=== PATIENT | female | born 1995 | race African-American/Black ===

== ENCOUNTER 2016-09-19 20:14 | Emergency (ER) | payer MEDICAID ==
[2016-09-19 20:17] VITALS: BP 136/70; PULSE 133; RESP 16; TEMP 98; O2SAT 100
--- NOTE | 2016-09-19 20:36 | PD ---
Physical Exam Date Seen by Provider: Sep 19, 2016 Time Seen by Provider: 20:35 Narrative 21 yo female 6 months here for evaluation of "feeling tired". Has had this since the past few days. Thinks she might be dehydrated. No abdominal pain. No vaginal discharge. No issues with the . Vitals are stable in triage. Awaiting Bed placement. Data Data Last Documented VS Vital Signs Date Time Temp Pulse Resp B/P Pulse Ox O2 Delivery O2 Flow Rate FiO2 09/19/16 20:17 98.0 133 16 136/70 100 Room Air [facility] Medical Record Reviewed: Yes Supervised Visit with JEANETTE: No Scripts No Active Prescriptions or Reported Meds Luca Real Sep 19, 2016 20:36
--- NOTE | 2016-09-19 21:39 | PD ---
HPI Chief Complaint Fatigue Date Seen: Sep 19, 2016 Travel History International Travel<30 Days: No Contact w/Intl Traveler<30Days: No Known Affected Area: No History of Present Illness HPI Patient 21-year-old black female at [address] Germain and Christina who presents with complaint of I'm tired. She has no pain bleeding or leakage of fluid, heart rate tracing is reactive and she's not gunnar Para: 0 : 2 History Social History Alcohol Use: No Tobacco Use: No Substance Abuse: No Allergies-Medications (Allergen,Severity, Reaction): Coded Allergies: Blueberry (Verified Allergy, Severe, HIVES, 09/19/16) Home Meds No Active Prescriptions or Reported Meds Review of Systems General / Constitutional: No: Fever, Weight Gain, Chills, Other Eyes: No: Diploplia, Blurred Vision, Visual changes, Pain, Photophobia HENT: No: Headaches, Vertigo, Lightheadedness Cardiovascular: No: Irregular Rhythm, Chest Pain or Discomfort, Palpitations, Tachycardia, Syncope, Varicosities, Edema, Cyanosis Respiratory: No: Cough, Short of Breath, Other Gastrointestinal: No: Nausea, Vomiting, Diarrhea Genitourinary: No: Decreased Urinary Output, Oliguria Musculoskeletal: No: Limited ROM, Weakness, Cramping, Edema, Pain Skin: No Rash, No Itching, No Dryness, No Lumps, No Change in Pigmentation, No Change in Nails, No Alopecia, No Lesions Neurologic: No: Weakness, Dizziness, Syncope, Focal Abnormalities, Coordination Problem, Headache, Slurred Speech, Seizures Psychiatric: No: Depression, Suicidal Ideations, Homicidal Ideation Endocrine: No: Heat Intolerance, Cold Intolerance, Polydipsia, Polyuria, Other Physical Exam Vital Signs Date Time Temp Pulse Resp B/P Pulse Ox O2 Delivery O2 Flow Rate FiO2 09/19/16 20:17 98.0 133 16 136/70 100 Room Air Narrative GENERAL: Well-nourished, well-developed patient. SKIN: Warm and dry. HEAD: Normocephalic and atraumatic. EYES: No scleral icterus. No injection or drainage. ENT: No nasal drainage noted. Mucous membranes pink. Airway patent. NECK: Supple, trachea midline. No JVD. CARDIOVASCULAR: Regular rate and rhythm without murmurs, gallops, or rubs. RESPIRATORY: Breath sounds equal bilaterally. No accessory muscle use. BREASTS: Bilateral exam showed no masses , no retractions, no nipple discharge. ABDOMEN/GI: Abdomen soft, non-tender, bowel sounds present, no rebound, no guarding Gravid to [-27] weeks size Fundal Height: [27-] GENITOURINARY: Membranes: [intact ] Uterine Contractions: [-none] FHT's: Category: [1-] Baseline: [-133] Reactive: [yes-] Variability: [mod-] Decels: [none-] EXTREMITIES: No cyanosis or edema. BACK: Nontender without obvious deformity. No CVA tenderness. NEUROLOGICAL: Awake and alert. Motor and sensory grossly within normal limits. Five out of 5 muscle strength in all muscle groups. Normal speech. MDM Interpretation(s) 21-year-old black female at 27 weeks who presents with a complaint of just being tired and one in the baby checked out, she denies bleeding or leakage of fluid contractions. heart rate tracing is reactive baby is active she states is moving well, no contractions seen. Plan Plan is to discharge patient home to bedrest if she is tired that she should rest Diagnosis Diagnosis: Primary Impression: 27 weeks gestation of Additional Impression: Fatigue Disposition: 01 DISCHARGE HOME Condition: Stable Scripts No Active Prescriptions or Reported Meds Lokesh Garcia II, MD Sep 19, 2016 21:39
== END 2016-09-19 21:47 | disposition home or self-care (01) ==
LOC: HOBED 20:14
DX: O26.892 Other specified pregnancy related conditions, second trimester (principal); R53.83 Other fatigue; Z3A.27 27 weeks gestation of pregnancy
CPT/HCPCS: 99281

== ENCOUNTER 2016-12-05 08:33 | Inpatient (IN) | payer MEDICAID ==
[2016-12-05] VITALS (79 sets, daily range): BP systolic 64–133; BP diastolic 30–80; PULSE 66–111; RESP 14–22; TEMP 97.9–98.6
[~2016-12-05] VITALS: Ht 154.9 cm; Wt 59.0 kg
[2016-12-05] MEDS ORDERED: LACTATED RINGER'S 1000 ML INJ 1,000 ML IV SCH (09:04)
[2016-12-05] MEDS ORDERED: LACTATED RINGER'S 1000 ML INJ 1,000 ML IV PRN (09:04)
--- NOTE | 2016-12-05 09:04 | PD ---
HPI Chief Complaint Rupture membranes and contractions Date Seen: Dec 05, 2016 Time Seen: 09:01 Travel History International Travel<30 Days: No Contact w/Intl Traveler<30Days: No Known Affected Area: No History of Present Illness HPI 21-year-old who is at 39 weeks 0 days comes in complaining of rupture of membranes this morning at 6 AM with clear fluid. That having consistent contractions since that time. Patient denies vaginal bleeding and has been having normal movement. Denies any obstetrical complications she is group B strep positive. Weeks Gestation: 39 Para: 0 : 2 Miscarriage: 1 History Past Medical History Medical History: Denies Significant Hx Past Surgical History Surgical History: No Previous Surgery Family History Family History: Negative Social History Alcohol Use: No Tobacco Use: No Substance Abuse: Yes (marijuana) Allergies-Medications (Allergen,Severity, Reaction): Coded Allergies: blueberry (Unverified Allergy, Severe, HIVES, 10/24/16) Home Meds No Active Prescriptions or Reported Meds Review of Systems Except as stated in HPI: all other systems reviewed are Neg Physical Exam Narrative GENERAL: Well-nourished, well-developed patient. SKIN: Warm and dry. HEAD: Normocephalic and atraumatic. EYES: No scleral icterus. No injection or drainage. ENT: No nasal drainage noted. Mucous membranes pink. Airway patent. NECK: Supple, trachea midline. No JVD. CARDIOVASCULAR: Regular rate and rhythm without murmurs, gallops, or rubs. RESPIRATORY: Breath sounds equal bilaterally. No accessory muscle use. ABDOMEN/GI: Abdomen soft, non-tender, bowel sounds present, no rebound, no guarding Gravid to [38-] weeks size Fundal Height: [-] GENITOURINARY: External Genitalia: intact and normal in appearance BUS glands: [-Normal] Cervix: [-Mid position] Dilatation: [-2-3] Effacement: [80] Station: [-2-] Presentation: [Vertex-] Membranes: [ ruptured with clear fluid] Uterine Contractions: [-Every 5 minute] FHT's: Category: [1-] Baseline: [-140] Reactive: [Moderate-] Variability: [Moderate-] Decels: [-Absent] EXTREMITIES: No cyanosis or edema. BACK: Nontender without obvious deformity. No CVA tenderness. NEUROLOGICAL: Awake and alert. Motor and sensory grossly within normal limits. Five out of 5 muscle strength in all muscle groups. Normal speech. Data Data Vital Signs Reviewed: Yes Orders Orders Ob (2e) Additional Admit Info (12/05/16 08:58) Group B Strep: Positive MDM Medical Record Reviewed: Yes Plan 21-year-old at 39 weeks gestation, group B strep positive, in early labor with rupture membranes. Will admit to Dr. Germain for labor Diagnosis Diagnosis: Primary Impression: 39 weeks gestation of Additional Impressions: Rupture of membranes with clear amniotic fluid Irregular uterine contractions Group beta Strep positive Scripts No Active Prescriptions or Reported Meds Alicia Pina MD Dec 05, 2016 09:04
[2016-12-05] MEDS ORDERED: PENICILLIN G POTASSIUM INJ 5,000,000 UNITS in SODIUM CHLORIDE 0.9% INJ 100 ML IV ONE (09:15)
[2016-12-05] MEDS ORDERED: SODIUM CHLORID 0.9% 500 ML INJ 500 ML IV PRN (09:15)
[2016-12-05] MEDS ORDERED: OXYTOCIN 30 UNITS-500ML PREMIX 500 ML IV ONE (09:15)
[2016-12-05] MEDS ORDERED: LIDOCAINE HCL 1% 50 ML VIAL I-DERMAL PRN (09:15)
[2016-12-05] MEDS ORDERED: ONDANSETRON HCL 4 MG/2 ML VIAL IV PRN (09:15)
[2016-12-05] MEDS ORDERED: LIDOCAINE HCL 1% 50 ML VIAL INFIL PRN (09:15)
[2016-12-05] MEDS ORDERED: MINERAL OIL 10 ML VIAL TOPICAL PRN (09:15)
[2016-12-05] MEDS ORDERED: CITRIC ACID-SODIUM CITRATE LIQ 30 ML UDC PO SCH (09:15)
[2016-12-05 09:23] LABS: AUTOMATED NEUTROPHIL # 4.3 TH/MM3 (1.8-7.7); BASOPHIL % 0.2 % (0.0-2.0); EOSINOPHIL % 0.3 % (0.0-4.0); HEMATOCRIT 29.8 % (35.0-46.0); HEMO FLAGS DIFF FINAL; LYMPH % 22.6 % (9.0-44.0); LYMPHOCYTE # 1.4 TH/MM3 (1.0-4.8); MEAN CELL VOLUME 76.2 FL (80.0-100.0); MEAN CORPUSCULAR HGB CONC 31.5 % (32.0-36.0); MONO % 7.9 % (0.0-8.0); PLATELET COUNT 267 TH/MM3 (150-450); RED BLOOD COUNT 3.91 MIL/MM3 (4.00-5.30); RED CELL DISTRIBUTION WIDTH 15.1 % (11.6-17.2); WHITE BLOOD COUNT 6.3 TH/MM3 (4.0-11.0)
[2016-12-05] MEDS ORDERED: SODIUM CHLOR 0.9% 1000 ML INJ 1,000 ML IV PRN (09:24)
[2016-12-05 09:35] LABS: BLOOD, URINE NEG (NEG); COMMENT (UR) CULT NOT INDICATED; CULTURE IF INDICATED CULT NOT INDICATED; GLUCOSE,URINE NEG (NEG); KETONE, URINE NEG (NEG); MUCUS URINE FEW /lpf (OCC); NITRITE,URINE NEG (NEG); PH, URINE 7.5 (5.0-8.5); SQUAMOUS EPITHELIAL CELL URINE 1 /hpf (0-5); URINE COLOR YELLOW (YELLW/STRAW)
[2016-12-05] MEDS ORDERED: ePHEDrine/NS 25 MG/5 ML SYR ONE (09:40)
[2016-12-05] MEDS ORDERED: fentaNYL 2MCG-BUPIV 0.125% INJ 100 ML ONE (09:40)
[2016-12-05] MEDS ORDERED: OXYTOCIN 30 UNITS/NS 500ML PREMIX IV SCH (10:00)
[2016-12-05] MEDS ORDERED: PREN29TA PO (11:40)
[2016-12-05] MEDS ORDERED: OXYTOCIN 30 UNITS-500ML PREMIX 500 ML IV SCH ×2 (12:15→16:30)
[2016-12-05] MEDS ORDERED: PENICILLIN G POTASSIUM INJ 2,500,000 UNITS in SODIUM CHLORIDE 0.9% INJ 100 ML IV SCH (13:00)
[2016-12-05] MEDS ORDERED: DO NOT ADMINISTER ANTICOAGULANTS PRN (13:30)
[2016-12-05] MEDS ORDERED: fentaNYL 2MCG-BUPIV 0.125% 100 ML EPIDURAL SCH (13:30)
[2016-12-05] MEDS ORDERED: NO SYSTEM NARCOTICS PRN (13:30)
[2016-12-05] MEDS ORDERED: ePHEDrine/NS 25 MG/5 ML SYR IV PRN (13:30)
[2016-12-05] MEDS ORDERED: DIPHTH/TETANUS/ACEL PERTUSSIS (BOOSTER) 0.5 ML VIAL/PFS IM ONE (16:00)
[2016-12-05] MEDS ORDERED: MEASLES, MUMPS, RUBELLA VACCINE 0.5 ML VIAL SQ ONE (16:00)
--- NOTE | 2016-12-05 16:25 | PD.OB.DELI ---
Weeks gestation: 39 Gest age assessed date: Dec 05, 2016 Gest age assessed time: 16:23 Pt started active labor?: Yes Medical induction of labor?: No Artificial rupture of membrane: No Anesthesia: Epidural Episiotomy: None Vaginal Delivery: Normal Presentation: Occiput anterior Delayed cord clamping (45 sec): Yes : Male Delivery date: Dec 05, 2016 Delivery time: 16:07 One Minute : 9 Five Minute : 9 Weight: 3045g Placenta: Spontaneous delivery Laceration: No lacerations Estimated blood loss: 100ml Dorie Germain MD Dec 05, 2016 16:25
[2016-12-05] MEDS ORDERED: ZOLPIDEM TARTRATE 5 MG TAB PO PRN (16:30)
[2016-12-05] MEDS ORDERED: ACETAMINOPHEN 325 MG TAB PO PRN (16:30)
[2016-12-05] MEDS ORDERED: ALUMINUM/MAGNESIUM/SIMETH 30 ML CUP PO PRN (16:30)
[2016-12-05] MEDS ORDERED: DOCUSATE SODIUM 50 MG/SENNA 8.6 MG TAB PO PRN (16:30)
[2016-12-05] MEDS ORDERED: ONDANSETRON ODT 4 MG TAB PO PRN (16:30)
[2016-12-05] MEDS ORDERED: SODIUM CHLORIDE 0.9% FLUSH 10 ML FLUSH IV FLUSH PRN (16:30)
[2016-12-05] MEDS ORDERED: WITCH HAZEL 50%/GLYCERIN 12.5% 40 PAD JAR TOPICAL PRN (16:30)
[2016-12-05] MEDS ORDERED: BENZOCAINE 20% TOPICAL SPRAY 60 ML CAN TOPICAL PRN (16:30)
[2016-12-05] MEDS: IBUPROFEN 600 MG TAB PO PRN (17:55)
[2016-12-05] MEDS ORDERED: SODIUM CHLORIDE 0.9% FLUSH 10 ML FLUSH IV FLUSH SCH (21:00)
[2016-12-06] MEDS: IBUPROFEN 600 MG TAB PO PRN ×2 (08:32→21:24)
[2016-12-06 08:40] VITALS: BP 107/68; PULSE 72; RESP 18
[2016-12-06 09:52] VITALS: TEMP 98.4; O2SAT 98
[2016-12-06] MEDS ORDERED: INFLUENZA VIRUS VACCINE (QUADRIVALENT) 0.5 ML SYR IM ONE (10:00)
--- NOTE | 2016-12-06 11:26 | HHI.OB ---
Subjective Post Day: 1 Remarks PPD#1, stable using motrin for pain. Objective Objective Remarks GENERAL: Well-nourished, well-developed patient. CARDIOVASCULAR: Regular rate and rhythm without murmurs, gallops, or rubs. RESPIRATORY: Breath sounds equal bilaterally. No accessory muscle use. ABDOMEN/GI: Abdomen soft, non-tender. Fundus: Firm, non-tender at umbilicus. GENITOURINARY: Light to moderate bleeding. EXTREMITIES: No cyanosis or edema, non-tender, without signs of DVT. Medications and IVs Current Medications Medications (Trade) Dose Ordered Sig/Katie Route Start Time Stop Time Status Last Admin (NS Flush) 2 ml BID IV FLUSH 12/05/16 21:00 (NS Flush) 2 ml UNSCH PRN IV FLUSH 12/05/16 16:30 (Tylenol) 650 mg Q4H PRN PO 12/05/16 16:30 (Motrin) 600 mg Q6H PRN PO 12/05/16 16:30 12/06/16 08:32 (Americaine 20% Top Spr) 1 spray Q4H PRN TOPICAL 12/05/16 16:30 (Tucks Pads) 1 applic QID PRN TOPICAL 12/05/16 16:30 (Bettina-Colace) 2 tab Q12H PRN PO 12/05/16 16:30 (Ambien) 5 mg HS PRN PO 12/05/16 16:30 (Mag-Al Plus Susp Liq) 15 ml Q8H PRN PO 12/05/16 16:30 (Zofran Odt) 4 mg Q6H PRN PO 12/05/16 16:30 Assessment/Plan Assessment and Plan PPD#1, stable, plan discharge for tomorrow Discharge Planning Routine Attending Attestation seen by Dustin Christian MD Dec 06, 2016 11:26
[2016-12-06 20:00] VITALS: BP 106/77; PULSE 70; RESP 17; TEMP 98.8
--- NOTE | 2016-12-07 07:59 | HHI.OB ---
Subjective Post Day: 2 Remarks pt doing well, breast and bottlefeeding Objective Vitals/I&O vss afeb Objective Remarks GENERAL: Well-nourished, well-developed patient. CARDIOVASCULAR: Regular rate and rhythm without murmurs, gallops, or rubs. RESPIRATORY: Breath sounds equal bilaterally. No accessory muscle use. ABDOMEN/GI: Abdomen soft, non-tender. Fundus: Firm, non-tender at umbilicus. GENITOURINARY: Light to moderate bleeding. EXTREMITIES: No cyanosis or edema, non-tender, without signs of DVT. Medications and IVs Current Medications Medications (Trade) Dose Ordered Sig/Katie Route Start Time Stop Time Status Last Admin (NS Flush) 2 ml BID IV FLUSH 12/05/16 21:00 (NS Flush) 2 ml UNSCH PRN IV FLUSH 12/05/16 16:30 (Tylenol) 650 mg Q4H PRN PO 12/05/16 16:30 (Motrin) 600 mg Q6H PRN PO 12/05/16 16:30 12/06/16 21:24 (Americaine 20% Top Spr) 1 spray Q4H PRN TOPICAL 12/05/16 16:30 (Tucks Pads) 1 applic QID PRN TOPICAL 12/05/16 16:30 (Bettina-Colace) 2 tab Q12H PRN PO 12/05/16 16:30 (Ambien) 5 mg HS PRN PO 12/05/16 16:30 (Mag-Al Plus Susp Liq) 15 ml Q8H PRN PO 12/05/16 16:30 (Zofran Odt) 4 mg Q6H PRN PO 12/05/16 16:30 Assessment/Plan Assessment and Plan PPD#2, stable, plan discharge today Discharge Planning Routine Attending Attestation pt seen by Caridad Robles MD Dec 07, 2016 07:59
[2016-12-07 08:00] VITALS: BP 103/56; PULSE 67; RESP 18; TEMP 97.6
[2016-12-07] MEDS ORDERED: IBUP-232 PO (08:01)
--- NOTE | 2016-12-07 08:01 | HHI.DCPOC ---
Discharge Care Plan Your Health Problems Are: Pelvic pain Report Symptoms to Your Doctor -Temperature above 100.5 degrees -Redness, of incision or excessive or foul smelling drainage -Unusual pain or calf pain -Increased vaginal bleeding -Painful or difficulty urinating -Feelings of extreme sadness or anxiety after 2 weeks Goals to Promote Your Health * To prevent worsening of your condition and complications * To maintain your health at the optimal level Directions to Meet Your Goals Take your medications as prescribed Follow your dietary instruction Follow activity as directed Ensure plenty of rest for recovery Drink fluids for hydration Keep your appointments as scheduled Take your immunizations and boosters as scheduled If your symptoms worsen call your PCP, if no PCP go to Urgent Care Center or Emergency Room Smoking is Dangerous to Your Health. Avoid second hand smoke Call the 24-hour crisis hotline for domestic abuse at Caridad Guzman MD Dec 07, 2016 08:01
[2016-12-07] MEDS ORDERED: MULTIVIT/MIN/PREN/FOL AC/IRON PRENATAL TAB PO SCH (09:00)
[2016-12-07] MEDS: IBUPROFEN 600 MG TAB PO PRN (09:29)
== END 2016-12-07 15:07 | disposition home or self-care (01) | DRG 775 ==
LOC: HOBED 08:33 → H2EB 08:58 → H1EA 19:26
PROVIDERS: ADMIT Obstetrics & Gynecology; ATTEND Obstetrics & Gynecology
PROC: 10E0XZZ Delivery of Products of Conception, External Approach (ICD-10-PCS; principal; 2016-12-05)
PROC: 00HU33Z Insertion of Infusion Device into Spinal Canal, Percutaneous Approach (ICD-10-PCS; 2016-12-05)
PROC: 3E0R3CZ (ICD-10-PCS; 2016-12-05)
DX: O99.824 Streptococcus B carrier state complicating childbirth (principal); Z37.0 Single live birth; Z3A.39 39 weeks gestation of pregnancy
CPT/HCPCS: 59025; 81001; 85025; 86900; 86901; 90715; J2540; J2590; J3010; J7120

== ENCOUNTER 2017-04-14 11:39 | Emergency (ER) | payer MEDICAID ==
[~2017-04-14 11:39] MED LIST: IBUP-232 PO; PREN29TA PO
[2017-04-14 11:40] VITALS: BP 124/66; PULSE 123; RESP 14; TEMP 99.6; O2SAT 100
--- NOTE | 2017-04-14 11:51 | PD ---
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 Patient states she had not yet had her menstrual cycle but yesterday she began bleeding and she passed a large clot. She then passed a large piece of tissue that she is concerned about. She states after passing this the cramping has been not as severe. She denies any chest or tightness. No difficulty breathing. No sensations lightheadedness. Patient does not know she was but she does say that she had unprotected intercourse since she had her child. She has no other symptoms to report. PFSH Past Medical History Blood Disorders: No Anxiety: Yes Depression: No Cancer: No Cardiovascular Problems: No Diminished Hearing: No Endocrine: No Gastrointestinal Disorders: No Genitourinary: No Immune Disorder: No Implanted Vascular Access Dvce: No Musculoskeletal: No Neurologic: No Psychiatric: No Reproductive: Yes (PATIENT UNSURE IF EGGS ARE FERTILE.) Respiratory: No Immunizations Current: Yes : 0 Para: 0 Miscarriage: 0 : 0 Past Surgical History Other Surgery: No Social History Alcohol Use: No Tobacco Use: No Substance Use: Yes (MARIJUANA) Allergies-Medications (Allergen,Severity, Reaction): Coded Allergies: blueberry (Verified Allergy, Severe, HIVES, 04/14/17) Reported Meds & Prescriptions Reported Meds & Active Scripts Active Ibuprofen 600 Mg Tab 600 Mg PO Q6H PRN Reported Plus Iron 29-1 mg ( Vit-Iron Carbonyl) 29 Mg Iron-1 Mg Tab 1 Tab PO DAILY Review of Systems Except as stated in HPI: all other systems reviewed are Neg Physical Exam Narrative GENERAL: Well-nourished, well-developed female patient in no acute distress. SKIN: Focused skin assessment warm/dry. HEAD: Normocephalic. EYES: No scleral icterus. No injection or drainage. NECK: Supple, trachea midline. No JVD or lymphadenopathy. CARDIOVASCULAR: Regular rate and rhythm without murmurs, gallops, or rubs. RESPIRATORY: Breath sounds equal bilaterally. No accessory muscle use. GASTROINTESTINAL: Abdomen soft, non-tender, nondistended. No guarding. No rebound tenderness. MUSCULOSKELETAL: No cyanosis, or edema. BACK: Nontender without obvious deformity. No CVA tenderness. Data Data Last Documented VS Vital Signs Date Time Temp Pulse Resp B/P (MAP) Pulse Ox O2 Delivery O2 Flow Rate FiO2 04/14/17 14:50 04/14/17 14:00 92 17 99 Room Air 04/14/17 11:40 99.6 Orders Orders Ed Urine Pregnancytest Poc (04/14/17 11:51) Iv Access Insert/Monitor (04/14/17 12:08) Complete Blood Count With Diff (04/14/17 12:08) Basic Metabolic Panel (Bmp) (04/14/17 12:08) Beta Hcg (Quant/Titer) (04/14/17 12:08) Urinalysis - C+S If Indicated (04/14/17 12:08) Us Pelvis (Ques Pr/Ect)W Trans (04/14/17 ) Sodium Chlor 0.9% 1000 Ml Inj (Ns 1000 M (04/14/17 13:00) Ed Discharge Order (04/14/17 14:40) Labs Laboratory Tests Test 04/14/17 12:20 White Blood Count 4.9 TH/MM3 Red Blood Count 4.63 MIL/MM3 Hemoglobin 12.2 GM/DL Hematocrit 37.4 % Mean Corpuscular Volume 80.8 FL Mean Corpuscular Hemoglobin 26.4 PG Mean Corpuscular Hemoglobin Concent 32.7 % Red Cell Distribution Width 14.8 % Platelet Count 264 TH/MM3 Mean Platelet Volume 8.3 FL Neutrophils (%) (Auto) 45.1 % Lymphocytes (%) (Auto) 44.8 % Monocytes (%) (Auto) 8.6 % Eosinophils (%) (Auto) 0.9 % Basophils (%) (Auto) 0.6 % Neutrophils # (Auto) 2.2 TH/MM3 Lymphocytes # (Auto) 2.2 TH/MM3 Monocytes # (Auto) 0.4 TH/MM3 Eosinophils # (Auto) 0.0 TH/MM3 Basophils # (Auto) 0.0 TH/MM3 CBC Comment DIFF FINAL Differential Comment Urine Color YELLOW Urine Turbidity CLEAR Urine pH 6.0 Urine Specific [place] 1.012 Urine Protein NEG mg/dL Urine Glucose (UA) NEG mg/dL Urine Ketones NEG mg/dL Urine Occult Blood NEG Urine Nitrite NEG Urine Bilirubin NEG Urine Urobilinogen LESS THAN 2.0 MG/DL Urine Leukocyte Esterase NEG Urine RBC LESS THAN 1 /hpf Urine WBC 1 /hpf Urine Squamous Epithelial Cells <1 /hpf Urine Mucus FEW /lpf Microscopic Urinalysis Comment CULT NOT INDICATED Blood Urea Nitrogen 11 MG/DL Creatinine 0.72 MG/DL Random Glucose 81 MG/DL Calcium Level 9.2 MG/DL Sodium Level 140 MEQ/L Potassium Level 3.5 MEQ/L Chloride Level 108 MEQ/L Carbon Dioxide Level 25.1 MEQ/L Anion Gap 7 MEQ/L Estimat Glomerular Filtration Rate 123 ML/MIN Human Chorionic Gonadotropin, Quant 1676 MIU/ML MDM Medical Decision Making Medical Screen Exam Complete: Yes Emergency Medical Condition: Yes Medical Record Reviewed: Yes Differential Diagnosis Miscarriage versus menses versus dysmenorrhea versus dysfunctional uterine bleeding Narrative Course 22-year-old female presents to emergency department for evaluation. Patient appears without distress. Her vital signs are stable. She is tachycardic however she is very anxious about what is going on at this time. Laboratory Tests Test 04/14/17 12:20 White Blood Count 4.9 TH/MM3 Red Blood Count 4.63 MIL/MM3 Hemoglobin 12.2 GM/DL Hematocrit 37.4 % Mean Corpuscular Volume 80.8 FL Mean Corpuscular Hemoglobin 26.4 PG Mean Corpuscular Hemoglobin Concent 32.7 % Red Cell Distribution Width 14.8 % Platelet Count 264 TH/MM3 Mean Platelet Volume 8.3 FL Neutrophils (%) (Auto) 45.1 % Lymphocytes (%) (Auto) 44.8 % Monocytes (%) (Auto) 8.6 % Eosinophils (%) (Auto) 0.9 % Basophils (%) (Auto) 0.6 % Neutrophils # (Auto) 2.2 TH/MM3 Lymphocytes # (Auto) 2.2 TH/MM3 Monocytes # (Auto) 0.4 TH/MM3 Eosinophils # (Auto) 0.0 TH/MM3 Basophils # (Auto) 0.0 TH/MM3 CBC Comment DIFF FINAL Differential Comment Urine Color YELLOW Urine Turbidity CLEAR Urine pH 6.0 Urine Specific [place] 1.012 Urine Protein NEG mg/dL Urine Glucose (UA) NEG mg/dL Urine Ketones NEG mg/dL Urine Occult Blood NEG Urine Nitrite NEG Urine Bilirubin NEG Urine Urobilinogen LESS THAN 2.0 MG/DL Urine Leukocyte Esterase NEG Urine RBC LESS THAN 1 /hpf Urine WBC 1 /hpf Urine Squamous Epithelial Cells <1 /hpf Urine Mucus FEW /lpf Microscopic Urinalysis Comment CULT NOT INDICATED Blood Urea Nitrogen 11 MG/DL Creatinine 0.72 MG/DL Random Glucose 81 MG/DL Calcium Level 9.2 MG/DL Sodium Level 140 MEQ/L Potassium Level 3.5 MEQ/L Chloride Level 108 MEQ/L Carbon Dioxide Level 25.1 MEQ/L Anion Gap 7 MEQ/L Estimat Glomerular Filtration Rate 123 ML/MIN Human Chorionic Gonadotropin, Quant 1676 MIU/ML Last Impressions Pelvis Ultrasound 04/14/17 0000 Signed Impressions: Service Date/Time: Friday, April 14, 2017 13:30 - CONCLUSION: 1. No intrauterine . Ectopic not visualized but not excluded. 2. Hypoechoic area in the endometrium could be related to residual hemorrhage or retained products if patient had spontaneous . 3. Close interval followup with serial beta-hCGs. 4. Small amount of pelvic free fluid. 5. Complex cyst right ovary measures 1.4 cm. Braydon Locke MD Findings are discussed with my attending physician. I have also discussed with the patient. She is given strict instructions for follow-up. She agrees to return immediately with any acute worsening symptoms. Diagnosis Primary Impression: Miscarriage Referrals: [facility] Manager Patient Instructions: General Instructions, Miscarriage (ED) Additional Instructions: Repeat beta hcg in 2 days; this can be done in the ED or at your termite control technician's office Follow up with a primary care provider Return to the ED with acute worsening of symptoms Med/Other Pt SpecificInfo: No Change to Meds Disposition: 01 DISCHARGE HOME Condition: Stable Suzette Montero Apr 14, 2017 11:51
[2017-04-14 12:31] LABS: AUTOMATED NEUTROPHIL # 2.2 TH/MM3 (1.8-7.7); BASOPHIL % 0.6 % (0.0-2.0); EOSINOPHIL % 0.9 % (0.0-4.0); HEMATOCRIT 37.4 % (35.0-46.0); HEMOGLOBIN 12.2 GM/DL (11.6-15.3); LYMPH % 44.8 % (9.0-44.0); LYMPHOCYTE # 2.2 TH/MM3 (1.0-4.8); MEAN CELL VOLUME 80.8 FL (80.0-100.0); MEAN CORPUSCULAR HEMOGLOBIN 26.4 PG (27.0-34.0); MEAN CORPUSCULAR HGB CONC 32.7 % (32.0-36.0); MEAN PLATELET VOLUME 8.3 FL (7.0-11.0); MONO % 8.6 % (0.0-8.0); MONOCYTE # 0.4 TH/MM3 (0-0.9); NEUT % 45.1 % (16.0-70.0); PLATELET COUNT 264 TH/MM3 (150-450); RED BLOOD COUNT 4.63 MIL/MM3 (4.00-5.30); RED CELL DISTRIBUTION WIDTH 14.8 % (11.6-17.2); WHITE BLOOD COUNT 4.9 TH/MM3 (4.0-11.0)
[2017-04-14 12:34] LABS: BILIRUBIN, URINE NEG (NEG); BLOOD, URINE NEG (NEG); GLUCOSE,URINE NEG (NEG); KETONE, URINE NEG (NEG); MUCUS URINE FEW /lpf (OCC); NITRITE,URINE NEG (NEG); SQUAMOUS EPITHELIAL CELL URINE <1 /hpf (0-5); URINE COLOR YELLOW (YELLW/STRAW); URINE LEUKOCYTE ESTERASE NEG (NEG)
[2017-04-14 12:51] LABS: BICARBONATE 25.1 MEQ/L (21.0-32.0); CALCIUM 9.2 MG/DL (8.5-10.1); CREATININE 0.72 MG/DL (0.50-1.00)
[2017-04-14] MEDS ORDERED: SODIUM CHLOR 0.9% 1000 ML INJ 1,000 ML IV ONE (13:00)
[2017-04-14 14:00] VITALS: BP 95/60; PULSE 92; RESP 17; O2SAT 99
--- NOTE | 2017-04-14 14:37 | RADRPT ---
EXAM DATE/TIME: 04/14/2017 13:30 [facility] COMPARISON: No previous studies available for comparison. INDICATIONS : Pelvic bleeding. LAB(S): Beta-hC,676 MEDICAL HISTORY : . Anxiety. Substance use. SURGICAL HISTORY : None. ENCOUNTER: Initial ACUITY: 3 days PAIN SCORE: 0/10 LOCATION: Bilateral pelvis MEASUREMENTS: UTERUS: 9.5 x 6.7 x 4.4 cm ENDOMETRIAL STRIPE: 11 mm RIGHT OVARY: 2.5 x 1.9 x 1.7 cm LEFT OVARY: 1.7 x 1.3 x 1.6 cm FREE FLUID: Yes posterior cul de sac FINDINGS: UTERUS: The myometrium has homogeneous echotexture without mass. No intrauterine . Hypoechoic area in the endometrium measures 2.5 x 2.5 x 1.5 cm. RIGHT OVARY: Complex cyst containing internal echoes measures 14 x 10 x 14 mm. LEFT OVARY: Ovary contains no mass or significant cystic lesion. MISCELLANEOUS: Small amount of free fluid. CONCLUSION: 1. No intrauterine . Ectopic not visualized but not excluded. 2. Hypoechoic area in the endometrium could be related to residual hemorrhage or retained produ cts if patient had spontaneous . 3. Close interval followup with serial beta-hCGs. 4. Small amount of pelvic free fluid. 5. Complex cyst right ovary measures 1.4 cm. Braydon Locke MD on April 14, 2017 at 14:29 Board Certified Radiologist. This report was verified electronically.
== END 2017-04-14 15:00 | disposition home or self-care (01) ==
LOC: NEPD 11:39
DX: O03.9 Complete or unspecified spontaneous abortion without complication (principal); F41.9 Anxiety disorder, unspecified
CPT/HCPCS: 76700; 76817; 80048; 81001; 84702; 84703; 85025; 96360; 96361; 99284; J7030

== ENCOUNTER 2017-07-11 19:13 | Emergency (ER) | payer SELFPAY ==
[2017-07-11 19:39] VITALS: BP 134/73; PULSE 104; RESP 18; TEMP 98.6; O2SAT 100
[2017-07-11 20:11] VITALS: BP 118/70; PULSE 114; RESP 18; O2SAT 100
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
[2017-07-11] MEDS ORDERED: IBUP-232 PO (21:41)
[2017-07-11] MEDS ORDERED: IBUPROFEN 600 MG TAB PO ONE (21:45)
== END 2017-07-11 22:08 | disposition home or self-care (01) ==
LOC: NEPD 19:13
DX: S50.02XA Contusion of left elbow, initial encounter (principal); W22.8XXA Striking against or struck by other objects, initial encounter
CPT/HCPCS: 73080; 99283